=== PATIENT | male | born 1950 | race Caucasian/White ===

== ENCOUNTER 2017-01-29 12:32 | Observation (INO) | payer OTHER ==
[~2017-01-29] VITALS: Ht 182.9 cm; Wt 82.0 kg
--- NOTE | 2017-01-29 12:36 | NUR ---
EKG IN PROGRESS
--- NOTE | 2017-01-29 12:50 | NUR ---
PER SON OF PT HE WENT INTO THE BATHROOM AND FOUND PT ON FLOOR ALOC BUT BREATHING. SON CLAIMS PT WAS ALERTERED FOR APPROX 10 MIN. DROVE PT TO ER. UPON ARRIVAL PT IS ALERT AND ORIENTED WITH NO S/S DISTRESS NOTED. PERFORMED STROKE ASSESSMENT AND PT SHOWS NO S/S OF STROKE INCLUDING NO FACIAL DROOP, ARM DRIFT AND HAS EQUAL HAND SANITATION LABORER. PT DENIES PAIN AT THIS TIME. PER PT HE REMEMBERS FEELING DIZZY LAST NIGHT. CLAIMS HE FELT RIGHT ARM NUMBNESS THIS AM AND HAD 2 EPISODES OF SYNCOPE THIS AM IN THE BATHROOM. CONNECTED TO ACCOUNTS PAYABLE CLERK AND IV SALINE LOCK INITIATED. BP 92/60 AND FLUIDS STARTED. PT ONLY C/O DIZZINESS AT THIS TIME. SON AT BEDSIDE.
[2017-01-29 12:52] LABS: BASOPHIL % 0.5 % (0-2); PLATELET COUNT 233 x10^3mcL (130-400)
[2017-01-29 13:09] LABS: CARBON DIOXIDE 26.7 mmol/L (21-32); CHLORIDE SERUM 104 mmol/L (98-107); GFR1 > 60 mL/min; GLUCOSE SERUM 155 mg/dL (74-106); POTASSIUM SERUM 4.5 mmol/L (3.5-5.1); SODIUM SERUM 139 mmol/L (136-145)
[2017-01-29 13:13] LABS: ALKALINE PHOSPHATASE 66 U/L (46-116); ALT/SGPT 17 U/L (16-63); AST/SGOT 17 U/L (15-37); BILIRUBIN TOTAL 0.5 mg/dL (0.20-1.00); TOTAL PROTEIN, SERUM 6.7 g/dL (6.4-8.2)
[2017-01-29 13:19] LABS: ALBUMIN 3.1 g/dL (3.4-5.0)
--- NOTE | 2017-01-29 13:36 | NUR ---
DR MONTEZ AT BEDSIDE FOR EVAL
[2017-01-29] MEDS ORDERED: SIMVASTATIN40 M1 PO (13:57)
[2017-01-29] MEDS ORDERED: XARELTO20 M1 PO (13:57)
[2017-01-29] MEDS ORDERED: METOPROLOL SUCC50 M2 PO (13:58)
--- NOTE | 2017-01-29 15:57 | NUR ---
DR MONTEZ AT BEDSIDE PERFORMING RECTAL EXAM. PT TOLERATED WELL
--- NOTE | 2017-01-29 16:44 | NUR ---
REPORT GIVEN TO SIMRAN HEWITT
--- NOTE | 2017-01-29 16:47 | NUR ---
WAITING FOR DR MONTEZ TO DICTATE CHART
[2017-01-29 17:24] VITALS: BP 127/69
--- NOTE | 2017-01-29 17:34 | NUR ---
REC'D AAOX4, SPEECH CLEAR. C/O SLIGHT DIZZINESS, DENIES PAIN. ON RA, NO SOB NOTED. ATTACHED TELE 3. ON AFIB. IV SITE WNL. SKIN INTACT. FAMILY AT THE BEDSIDE. ORIENTED ROOM AND SURROUNDINGS. CALL LIGHT WITHIN REACH, PROVIDED REPORT TO SIMRAN BENAVIDEZ FOR CONTINUITY OF CARE.
[2017-01-29 17:41] LABS: CHOLESTEROL/HDL RATIO 2.6; MAGNESIUM 1.9 mg/dL (1.8-2.4); PHOSPHOROUS 2.7 mg/dL (2.5-4.9)
[2017-01-29 17:52] LABS: FREE T4 0.89 ng/dL (0.76-1.46); FREE THYROXINE INDEX 2.1 ug/dL (1.4-4.5); T4(THYROXINE) 5.8 ug/dL (4.7-13.3)
--- NOTE | 2017-01-29 18:47 | NUR ---
AAO TIMES 4. TELE # 3 A FIB 107. PLEASANT AND COOPERATIVE. FAMILY PRESENT, SUPPORTIVE. NO C/O PAIN. NO SOB. PT STATES HE IS SLIGHLTY DIZZY. IV SITE TO [facility] PATENT, CDI. PTHAS NO DIET ORDERED, HE CAME IN FOR SYCOPE AND GI BLEED.
--- NOTE | 2017-01-29 19:49 | NUR ---
SHIFT TEASEESSSMENT,PATIENT AMBULATORY RESTROOM,PATIENT CAME IN WITH SYCOPE,FALL RISK,PHYSICAL TX ORDERED.NS AT 100 CC/ HOUR.LAC.US CAROTID BEING DONE AT THIS TIME AT BEDSIDE,LARGE FAMILY MEMBER VISITING.TELE 3 AFIB.REPORT BLACK STOOL TODAY.SKIN INTACT.SCD ORDERED.VOIDING WELL.CALL LITE IN REACH.WAS GIVEN ANTIVERT/DIZZINESS.WILL CHECK IF HE NEED IT LATER.
[2017-01-29 20:31] LABS: T3 TOTAL 1.04 ng/mL
--- NOTE | 2017-01-29 21:23 | NUR ---
PM MEDS GIVEN,GIVEN ALSO MECLIZINE/CAME IN WITH DIZZINESS,DINNER SERVED,SANDWICH ATE WELL.FAMILY AT BEDSIDE.
[2017-01-29 22:14] VITALS: BP 107/66
--- NOTE | 2017-01-30 02:31 | NUR ---
PATIENT FAMILY WAS STAYING,WAS GIVEN RECLINER,BECAUSE WAS SLEEPING ON A STRIP BED.BUT STILL FOUND OUT NOT USING THE GERICHAIR THAT WAS OFFERED EARLIER,CHARGE PRANAV CASTILLO AWARE,MARGOT BLOCK TESTER AWARE.
[2017-01-30 06:16] LABS: microscopic required? NO
[2017-01-30 06:26] VITALS: BP 99/61
[2017-01-30 06:36] LABS: BASOPHIL % 0.5 % (0-2); PLATELET COUNT 200 x10^3mcL (130-400); RED CELL DISTRIBUTION WIDTH 14.5 % (11.5-14.5)
[2017-01-30 06:39] LABS: CALCIUM 7.9 mg/dL (8.5-10.1); CARBON DIOXIDE 25.7 mmol/L (21-32); CHLORIDE SERUM 110 mmol/L (98-107); GFR1 > 60 mL/min; GLUCOSE SERUM 103 mg/dL (74-106); POTASSIUM SERUM 4.3 mmol/L (3.5-5.1); SODIUM SERUM 144 mmol/L (136-145)
[2017-01-30 07:26] LABS: UA SPECIFIC GRAVITY 1.015 (1.005-1.035); urine erythrocyte NEGATIVE (NEGATIVE)
--- NOTE | 2017-01-30 07:28 | NUR ---
RECEIVED PT LAYING IN BED ASLEEP. SON SLEEPING AT BEDSIDE. NO APPARENT SIGNS OF ACUTE DISTRESS NOTED. RESPIRATIONS EVEN AND UNLABORED. ROOM AIR. IV TO LAC APPEARS PATENT AND INFUSING AT 125ML/HR OF NS. CALL LIGHT WITHIN REACH. BED IN LOWEST POSITION. WILL CONTINUE TO MONITOR
[2017-01-30 07:32] LABS: AMPHETAMINE QUAL UR NONE DETECTED (NEG <=1000)
--- NOTE | 2017-01-30 08:15 | NUR ---
PER SALESPERSON PETS AND PET SUPPLIES, PT'S HR WAS UP TO 169. WENT IN TO CHECK ON PT. PT STATED THAT HE FELT OK, DENIED PAIN. APPEARS ASYMPTOMATIC AT THIS TIME. WILL CONTINUE TO MONITOR
--- NOTE | 2017-01-30 08:48 | NUR ---
STOOL EXAMINING OFFICER PUT INTO TOILET TO ASSESS BM FOR COLOR AND CONSISTENCY. SON AT BEDSIDE. PT PLEASANT AND COOPERATIVE. CALL LIGHT WITHIN REACH. ENCOURAGED TO CALL FOR ASSITANCE WHEN NEEDED. WILL CONTINUE TO MONITOR
--- NOTE | 2017-01-30 08:53 | NUR ---
PT C/O FEELING DIZZY. ENCOURAGED TO REST, CLOSE EYES, AND TAKE DEEP BREATHES. WAS GIVEN MECLIZINE PO PRN. CALL LIGHT WITHIN REACH. BED IN LOWEST POSITION. SON AT BEDSIDE. WILL CONTINUE TO MONITOR
[2017-01-30 09:14] VITALS: BP 98/63
--- NOTE | 2017-01-30 09:52 | NUR ---
STOOL SAMPLE SENT DOWN TO LAB FOR CULTURE.
--- NOTE | 2017-01-30 10:53 | NUR ---
F/U WITH FAMILY MEMBERS IN REGARDS TO AM ROUNDS; CLARIFICATION OF TREATMENT PLAN EXPLAINED. APPEARED RECEPTIVE. ENCOURAGED TO CALL FOR ASSISTANCE OR IF THERE ANY QUESTION. WILL CONTINUE TO MONITOR
--- NOTE | 2017-01-30 11:47 | NUR ---
PT C/O NAUSEA AND DIZZINESS. PT FAMILY STATED THAT THEY HAD TO ASSIST HIM TO THE RESTROOM. GIVEN ZOFRAN PRN IVP. CALL LIGHT WITHIN REACH. WILL CONTINUE TO MONITOR
--- NOTE | 2017-01-30 12:10 | NUR ---
P.T. NOTES RECEIVED CANCELLATION FOR P.T. EVAL ORDER.
--- NOTE | 2017-01-30 12:22 | NUR ---
WENT IN TO SPEAK WITH PT AND PT FAMILY. PT STATES THAT HE STILL FEELS DIZZY. PT EXPRESSED THAT WHEN HE IS LAYING DOWN, HE FEELS OK AND IT DOES NOT FEEL THOUGH IT IS THE ROOM THAT IS SPINNING, IT IS HIM HIMSELF. DR. VILLAFUERTE AND DR. BRODY AWARE. WAS GIVEN AN ADDITIONAL DOSE OF MECLAZINE PO PRN. CALL LIGHT WITHIN REACH. WILL CONTINUE TO MONITOR
[2017-01-30 13:55] VITALS: BP 100/56
--- NOTE | 2017-01-30 15:30 | NUR ---
PT HAD A HOSPICE EVAL WITH [facility]. ADDITIONAL ASSESSMENT FROM A HOSPICE NURSE WILL COME AROUND 1630 ACCORDING TO CEMENT SACK BREAKER.
--- NOTE | 2017-01-30 16:06 | NUR ---
PT RESTING IN BED. FAMILY AT BED SIDE. HR IS CURRENTLY IN THE HIGH 90s. NO APPARENT SIGNS OF DISTRESS NOTED. CALL LIGHT WITHIN REACH, BED IN LOWEST POSITION. WILL CONTINUE TO MONITOR.
[2017-01-30 17:25] VITALS: BP 101/65
--- NOTE | 2017-01-30 17:29 | NUR ---
PT RESTING IN BED. DENIES PAIN OR DIZZINESS AT THIS TIME. FAMILY AT BEDSIDE. WENT OVER PLAN OF CARE AGAIN WITH PT AND FAMILY. CALL LIGHT WITHIN REACH. BED IN LOWEST POSTITION. WILL CONTINUE TO MONITOR
--- NOTE | 2017-01-30 18:58 | NUR ---
LAST ROUNDS DONE; PT DENIES PAIN, DISCOMFORT, OR DIZZINESS. FAMILY AT BEDSIDE. CALL LIGHT WITHIN REACH. BED IN LOWEST POSITION. WILL ENDORSE CARE TO ONCOMING NURSE
--- NOTE | 2017-01-30 20:25 | NUR ---
PATIENT AWAKE, ALERT, ORIENTED X4. REMAINS TO COMPLAIN OF ON/OFF DIZZINESS. RESPIRATION EVEN AND UNLABORED, ON ROOM AIR. ONGOING 0.9% NS AT 125 CC/HR INFUSING WELL AT THE LEFT ANTECUBITAL AREA. VOIDING FREELY IN THE BATHROOM. PATIENT HAD 2 EPISODES OF BLACK, TARRY, LOOSE STOOL THIS AM. AMBULATORY. SKIN DRY AND INTACT. ON TELE #3. DENIES PAIN AT THIS TIME. WILL CONTINUE TO MONITOR.
[2017-01-30 22:09] VITALS: BP 102/60
--- NOTE | 2017-01-31 06:30 | NUR ---
PATIENT RESTING IN BED. RESPIRATION EVEN AND UNLABORED. IV SITE PATENT AND INTACT. ASSISTED WITH NEEDS. SAFETY OBSERVED. PLACED CALL LIGHT WITHIN REACH AT ALL TIMES. FAMILY MEMBER STAYED OVERNIGHT.
[2017-01-31 06:33] VITALS: BP 94/61
[2017-01-31 06:41] LABS: CALCIUM 7.7 mg/dL (8.5-10.1); CARBON DIOXIDE 27.6 mmol/L (21-32); CHLORIDE SERUM 112 mmol/L (98-107); CREATININE SERUM 0.9 mg/dL (0.7-1.3); GFR1 > 60 mL/min; GLUCOSE SERUM 100 mg/dL (74-106); PHOSPHOROUS 3.3 mg/dL (2.5-4.9); POTASSIUM SERUM 4.2 mmol/L (3.5-5.1); SODIUM SERUM 145 mmol/L (136-145)
[2017-01-31 07:12] LABS: BASOPHIL % 0.6 % (0-2); PLATELET COUNT 188 x10^3mcL (130-400); RED CELL DISTRIBUTION WIDTH 14.5 % (11.5-14.5)
--- NOTE | 2017-01-31 08:00 | NUR ---
PT AWAKE ALERT AND ORIENTED X4 ABLE TO MAKE NEEDS KNOWN. TELE 3. PULSES EQUAL NO EDEMA NOTED. LUNGS CTA, COMFORTABLE ON RA. BOWEL TONES ACTIVE. BRP. SKIN IS CDI. DENIES PAIN N/V. IV TO THE LAC PATNET AND INFUSING. PT IS CALM AND COOPERATIVE WITH CARE, WILL CONTINUE TO MONITOR.
[2017-01-31 09:30] VITALS: BP 100/61
[2017-01-31 11:20] VITALS: BP 100/61
--- NOTE | 2017-01-31 12:45 | NUR ---
VERIFIED WITH DR BRODY IF PT SHOULD CONTINUE HOME ON THE XARELTO, PER DR BRODY PT IS TO HOLD XARELTO UNTIL FOLLOW UP APPT WITH PCP.
--- NOTE | 2017-01-31 12:54 | NUR ---
DISCHARGE INSTRUSTIONS GIVEN TO PT, PT AND FAMILY VERBAILZED UNDERSTANDING. IV DC'D CATHETER TIP INTACT. ALL BELONGINGS TAKEN OFF THE FLOOR BY PT, TELE 3 CLEANED AND RETURNED TO MONITOR ROOM. PT MADE AWARE PER DR BRODY TO HOLD BLOOD THINNER TILL FOLLOW UP APPT WITH PCP, PT AND FAMILY VERBALIZED UNDERSTANDING.
== END 2017-01-31 12:58 | disposition home or self-care (01) | DRG 377 ==
LOC: ED 12:32 → DU 16:20
PROVIDERS: ADMIT Family Medicine
DX: K92.2 Gastrointestinal hemorrhage, unspecified (principal); I63.9 Cerebral infarction, unspecified; N17.0 Acute kidney failure with tubular necrosis; E44.0 Moderate protein-calorie malnutrition; I48.2 Chronic atrial fibrillation; I10 Essential (primary) hypertension; J45.909 Unspecified asthma, uncomplicated; D64.9 Anemia, unspecified; Z68.24 Body mass index [BMI] 24.0-24.9, adult; Z79.01 Long term (current) use of anticoagulants
CPT/HCPCS: 83880; 84439; 87046; 87046-59; C9113; G0378; J2405; J3490; J7030; J8597; Q0092